=== PATIENT | male | born 1960 | race Caucasian/White ===

== ENCOUNTER → 2019-12-26 | Outpatient (CLI) | payer OTHER ==
[~2019-12-26] MED LIST: CART1TAB5 PO; CYCL1DRO EACHEYE; GLUC-11 PO; OMEG1CAP6 PO
== END | disposition home or self-care (01) ==
LOC: LAB 08:04
PROVIDERS: ATTEND Registered Nurse
DX: Z01.812 Encounter for preprocedural laboratory examination (principal); Z12.11 Encounter for screening for malignant neoplasm of colon; Z20.828 Contact with and (suspected) exposure to other viral communicable diseases
CPT/HCPCS: C9803; U0003; 36415

== ENCOUNTER → 2019-12-30 | Day surgery (SDC) | payer OTHER ==
[~2019-12-30] MED LIST changes: +IPRATRPIUM/ALBUTEROL 0.5/2.5MG 3 ML NEBU. NEB PRN; +IV RINGERS SOLUTION,LACTATED 1,000 ML IV SCH; +MIDAZOLAM HCL PF 2 MG/2 ML VIAL. IV ONE; +ONDANSETRON PF 4 MG/2 ML VIAL. IV PRN; +PROPOFOL 10,000 MCG/ML (20ML) VIAL IV ONE
[2019-12-30 09:31] VITALS: BP 124/95
--- NOTE | 2019-12-31 18:06 | PATHOLOGY ---
[facility] Accession Number: [id number] . 01 Material submitted: . PART A: cecum - CECUM POLYP PART B: colon - TRANSVERSE POLYP. Modifiers: transverse . 01 Clinical history: . None provided . 02 Diagnosis: A. Colon biopsies, cecal polyp: - Diminutive tubular adenoma. . B. Colon biopsy, transverse colon polyp: - Tubular adenoma. (JPM:collins; 12/31/2019) S 12/31/2019 0908 Local . 02 Comment: There is no high grade dysplasia or evidence of malignancy. (JPM:collins; 12/31/2019) . 02 Electronically signed: . Robb Gaitan MD, Pathologist NPI- [id number] . 01 Gross description: . A. The specimen is received in formalin, labeled "Fermín Salvatorelli, cecum polyp". Received are two segments of pale guadarrama soft tissue ranging in size from 0.4 to 0.5 cm in maximum dimensions. The specimen is submitted entirely in cassette A1. . B. The specimen is received in formalin, labeled "Fermín Salvatorelli, transverse polyp". Received is a segment of pale guadarrama soft tissue measuring 0.6 cm in maximum dimensions. The specimen is submitted entirely in cassette B1. (CAA; 12/30/2019) QAC/QAC 12/30/2019 1738 Local . 02 Pathologist provided ICD-10: D12.0, D12.3 . 02 CPT . 144028, 447892 Specimen Comment: A courtesy copy of this report has been sent to [phone], [phone] Specimen Comment: [id number] Specimen Comment: Report sent to / DR LEUNG Performed at: [address] [place] [address] [address]vd [address], [place], [place] [id number] MD Mc Velasco MD Phone: [phone] Performed at: [address] [id number] MD Robb Gaitan MD Phone: [phone]
== END | disposition home or self-care (01) ==
LOC: SURG 07:24
PROVIDERS: ATTEND Internal Medicine Gastroenterology
DX: Z12.11 Encounter for screening for malignant neoplasm of colon (principal); D12.0 Benign neoplasm of cecum; D12.3 Benign neoplasm of transverse colon; K63.89 Other specified diseases of intestine; K57.30 Diverticulosis of large intestine without perforation or abscess without bleeding; I10 Essential (primary) hypertension; H40.9 Unspecified glaucoma; M19.90 Unspecified osteoarthritis, unspecified site; Z98.890 Other specified postprocedural states; Z79.899 Other long term (current) drug therapy
CPT/HCPCS: 45380; 45385; 88305; J2704; J7120